=== PATIENT | female | born 1990 | race Caucasian/White ===

== ENCOUNTER 2018-12-09 09:44 | Emergency (ER) | payer BC ==
[2018-12-09] MEDS ORDERED: ETHI1TAB3 PO (09:53)
--- NOTE | 2018-12-09 10:17 | ER Report ---
History and Physical Time Seen By MD: 10:05 Hx. of Stated Complaint: abd pain since monday night HPI/ROS CHIEF COMPLAINT: Abdominal pain, vomiting HISTORY OF PRESENT ILLNESS: Pt presents with left lower quadrant pain that began monday night, worsened over past day, associated with vomiting. Pain is sharp, left lower quadrant, constant, occ radiates up left side, 7/10, began prior to vomiting, no prior episodes, worse with eating, improved with heat. Vomited 1x mon evening, 3 x sat, throughout the night last night. Last BM monday. No bloody/black stools or vomit REVIEW OF SYSTEMS: Constitutional: No fever, no chills. Eyes: No discharge. ENT: No sore throat. Cardiovascular: No chest pain, no palpitations. Respiratory: No cough, no shortness of breath. Gastrointestinal: above Genitourinary: no dysuria, no vaginal discharge Musculoskeletal: No back pain. Skin: No rashes. Neurological: No headache. Remainder of the 14 system rev: Yes Allergies: Coded Allergies: No Known Drug Allergies (Unverified , 12/09/18) Home Meds Reported Medications Ethinyl Estradiol/Drospirenone (CAROLE 28 TABLET) 1 Each Tablet, 1 EACH PO QDAY, TAB 12/09/18 Reviewed Nurses Notes: Yes Constitutional Vital Sign - Last 24 Hours 12/09/18 09:54 Temp 97.9 Pulse 125 Resp 18 B/P (MAP) 142/110 Pulse Ox 96 Physical Exam General Appearance: The patient is alert, has no immediate need for airway protection and no signs of toxicity. Eyes: Pupils equal and round no pallor or injection. ENT, Mouth: Mucous membranes are moist. Respiratory: There are no retractions, lungs are clear to auscultation. Cardiovascular: Regular rate and rhythm. Gastrointestinal: llq ttp to light touch + guarding, no rebound ttp. Abd non distended Pelvic exam- speculum exam shows normal cervix with slight amount of blood coming from closed os. No cervical motion tenderness, no right adnexal tenderness, on palpation of left adnexa, patient has no tenderness and abdominal tenderness appears to be approximately 4 cm superior to left adnexa. Neurological: alert, oriented, nad Skin: Warm and dry, no rashes. Musculoskeletal: Extremities are nontender, nonswollen and have full range of motion. DIFFERENTIAL DIAGNOSIS: After history and physical exam differential diagnosis w as considered for abdominal pain including but not limited to appendicitis, diverticulitis, ovarian torsion, pelvic infection, gastritis and urinary tract infection, Medical Decision Making Data Points Result Diagram: 12/09/18 0955 12/09/18 0955 Laboratory Hematology Test 12/09/18 09:55 12/09/18 10:23 Red Blood Count 5.64 M/uL (4.17-5.56) Mean Corpuscular Volume 81.5 fL (80.0-96.0) Mean Corpuscular Hemoglobin 27.1 pg (26.0-33.0) Mean Corpuscular Hemoglobin Concent 33.2 g/dL (32.0-36.0) Red Cell Distribution Width 13.3 % (11.5-14.5) Mean Platelet Volume 9.6 fL (7.2-11.1) Neutrophils (%) (Auto) 76.3 % (39.4-72.5) Lymphocytes (%) (Auto) 15.2 % (17.6-49.6) Monocytes (%) (Auto) 8.1 % (4.1-12.4) Eosinophils (%) (Auto) 0.1 % (0.4-6.7) Basophils (%) (Auto) 0.3 % (0.3-1.4) Nucleated RBC Relative Count (auto) 0.1 /100WBC Neutrophils # (Auto) 9.0 K/uL (2.0-7.4) Lymphocytes # (Auto) 1.8 K/uL (1.3-3.6) Monocytes # (Auto) 1.0 K/uL (0.3-1.0) Eosinophils # (Auto) 0.0 K/uL (0.0-0.5) Basophils # (Auto) 0.0 K/uL (0.0-0.1) Nucleated RBC Absolute Count (auto) 0.01 K/uL Sodium Level 141 mmol/L (137-145) Potassium Level 3.7 mmol/L (3.5-5.0) Chloride Level 103 mmol/L (98-107) Carbon Dioxide Level 24 mmol/L (22-31) Blood Urea Nitrogen 10 mg/dl (7-18) Creatinine 0.90 mg/dl (0.52-1.04) Glomerular Filtration Rate Calc > 60.0 Random Glucose 129 mg/dl (75-110) Calcium Level 10.0 mg/dl (8.4-10.2) Total Bilirubin 0.5 mg/dl (0.2-1.3) Aspartate Amino Transf (AST/SGOT) 36 U/L (0-35) Alanine Aminotransferase (ALT/SGPT) 21 U/L (0-56) Alkaline Phosphatase 37 U/L (0-126) Total Protein 8.1 g/dl (6.3-8.2) Albumin 4.7 g/dl (3.5-5.0) Lipase 83 U/L (23-300) Human Chorionic Gonadotropin, Qual Negative (NEGATIVE) Chemistry Test 12/09/18 09:55 12/09/18 10:23 White Blood Count 11.8 k/uL (4.5-11.0) Red Blood Count 5.64 M/uL (4.17-5.56) Hemoglobin 15.3 g/dL (12.0-16.0) Hematocrit 46.0 % (34.0-47.0) Mean Corpuscular Volume 81.5 fL (80.0-96.0) Mean Corpuscular Hemoglobin 27.1 pg (26.0-33.0) Mean Corpuscular Hemoglobin Concent 33.2 g/dL (32.0-36.0) Red Cell Distribution Width 13.3 % (11.5-14.5) Platelet Count 348 K/uL (150-450) Mean Platelet Volume 9.6 fL (7.2-11.1) Neutrophils (%) (Auto) 76.3 % (39.4-72.5) Lymphocytes (%) (Auto) 15.2 % (17.6-49.6) Monocytes (%) (Auto) 8.1 % (4.1-12.4) Eosinophils (%) (Auto) 0.1 % (0.4-6.7) Basophils (%) (Auto) 0.3 % (0.3-1.4) Nucleated RBC Relative Count (auto) 0.1 /100WBC Neutrophils # (Auto) 9.0 K/uL (2.0-7.4) Lymphocytes # (Auto) 1.8 K/uL (1.3-3.6) Monocytes # (Auto) 1.0 K/uL (0.3-1.0) Eosinophils # (Auto) 0.0 K/uL (0.0-0.5) Basophils # (Auto) 0.0 K/uL (0.0-0.1) Nucleated RBC Absolute Count (auto) 0.01 K/uL Glomerular Filtration Rate Calc > 60.0 Calcium Level 10.0 mg/dl (8.4-10.2) Total Bilirubin 0.5 mg/dl (0.2-1.3) Aspartate Amino Transf (AST/SGOT) 36 U/L (0-35) Alanine Aminotransferase (ALT/SGPT) 21 U/L (0-56) Alkaline Phosphatase 37 U/L (0-126) Total Protein 8.1 g/dl (6.3-8.2) Albumin 4.7 g/dl (3.5-5.0) Lipase 83 U/L (23-300) Human Chorionic Gonadotropin, Qual Negative (NEGATIVE) ED Course/Re-evaluation ED Course 28 f presents with LLQ pain and vomiting since monday. Concerning for torsio n/ectopic/toa, however pregancy neg and pelvic exam more c/w abd etiology. Therefore abd ct ordered to r/o diverticultiis or complication of, kidney stone, or other intra-abd pathology. Decision to Disposition Date: December 09, 2018 Decision to Disposition Time: 11:33 Depart Departure Latest Vital Signs Vital Signs Date Time Temp Pulse Resp B/P (MAP) Pulse Ox O2 Delivery O2 Flow Rate FiO2 12/09/18 09:54 97.9 125 18 142/110 96 Impression: Primary Impression: Ureterolithiasis Condition: Improved Disposition: HOME OR SELF-CARE New Scripts Ondansetron 4 Mg Odt (ONDANSETRON 4 MG ODT) 4 Mg Tab.rapdis 4 MG PO Q8H for Nausea, #10 TAB Prov: JOSE CLINE MD 12/09/18 Hydrocodone Bit/Acetaminophen (HYDROCODON-ACETAMINOPHEN 5-325) 1 Each Tablet 1 EACH PO Q4-6H for PAIN, #10 TAB Prov: JOSE CLINE MD 12/09/18 Patient Instructions: Ureteral Stones (ED) Additional Instructions: As we discussed, take ibuprofen 600 mg every 8 hours to control your pain until you pass the kidney stone or have no more pain. You may take Madison every 4 hours for pain not controlled by ibuprofen. If you need to take more than a couple Madison I recommend you take a laxative like MiraLAX to avoid constipation from the opiate medication. Use the urine strainers to urinate into and once you see the stone, take it to your primary doctor for analysis. Please return immediately for uncontrolled pain, vomiting, or any concerns JOSE CLINE MD December 09, 2018 10:17
[2018-12-09 10:27] LABS: PLATELET COUNT, AUTOMATED 348 K/uL (150-450)
[2018-12-09] MEDS ORDERED: NS(*) 0.9% 1000 ML BAG 1,000 ML IV ONE (10:30)
[2018-12-09] MEDS ORDERED: fentaNYL CITR 100 MCG/2 ML AMP IVP ONE (10:30)
[2018-12-09] MEDS ORDERED: ONDANSETRON 4 MG/2 ML VIAL IVP ONE (10:30)
[2018-12-09] MEDS ORDERED: IOPAMIDOL 76% 100 ML INFUS BTL 100 ML ONE (10:49)
[2018-12-09 11:30] VITALS: BP 113/81
[2018-12-09] MEDS ORDERED: KETOROLAC 15 MG/ML VIAL IVP ONE (11:35)
--- NOTE | 2018-12-09 11:36 | RADIOLOGY IMAGING REPORT ---
FACILITY: [facility] PATIENT NAME: Jake Richard : 1990 MR: [id number] V: [id number] EXAM DATE: ORDERING PHYSICIAN: JOSE CLINE TECHNOLOGIST: Location: [facility] - [place] Patient: Jake Richard : 1990 Visit/Account:[id number] Date of Sevice: 12/09/2018 CT abdomen and pelvis with IV contrast Indication: Left lower quadrant pain Comparison: None available. . Technique: Axial CT images were obtained through the abdomen and pelvis during injection of nonioni c iodinated intravenous contrast. Reformatted coronal and sagittal images were also obtained. One of the following dose optimization techniques was utilized in the performance of this exam: Automated ex posure control; adjustment of the mA and/or kV according to the patient's size; or use of an iterativ e reconstruction technique. Specific details can be referenced in the facility's radiology CT exam operational policy. Contrast: 80 ml of Isovue-370 IV contrast. Findings: Lower lung may: Limited views lower lung field are unremarkable. Liver: No focal parenchymal abnormality of the liver. Biliary: Gallbladder appears unremarkable as well as the intra and extra hepatic biliary system. Pancreas: Normal appearance. Spleen: Normal appearance. Adrenal glands: Unremarkable. Kidneys / retroperitoneum: Minimal prominence with subtle asymmetric urothelial enhancement is seen o f the left ureter. This is noted to the level of a punctate 2 mm stone noted at the left ureteral ves icle junction. Minimal asymmetric hydronephrosis. No significant perinephric stranding. Bowel / peritoneum / mesenteries: Small and large intestine are without acute pathology. The appendix appears normal. Lymph node assessment: No pathologic adenopathy identified. Vessels: No significant atherosclerotic calcifications seen throughout a nonaneurysmal abdominal aort a and branches. Musculoskeletal / Body wall: No acute or aggressive osseous abnormality. IMPRESSION: 1. 2 mm stone at the left UVJ with subsequent very mild hydroureteronephrosis and asymmetric urotheli al enhancement. Results were called to Dr. JOSE CLINE at 12/09/2018 11:32 AM. Report Dictated By: Rico Bradley MD at 12/09/2018 11:24 AM Report E-Signed By: Rico Bradley MD at 12/09/2018 11:32 AM WSN:[id number]
[2018-12-09] MEDS ORDERED: ONDA4TAB9 PO (11:45)
[2018-12-09] MEDS ORDERED: LOR5/325 PO (11:45)
== END 2018-12-09 11:55 | disposition home or self-care (01) ==
LOC: ER 10:03
DX: N20.1 Calculus of ureter (principal)
CPT/HCPCS: 74177; 83690; 84703; 85025; 87491; 87591; 96361; 96374; 96375; 99284; J1885; J2405; J3010; J7030; Q9967; 82040; 82247; 82310; 82374; 82435; 82565; 82947; 84075; 84132; 84155; 84295; 84450; 84460; 84520